=== PATIENT | female | born 1975 | race Caucasian/White ===

== ENCOUNTER 2017-02-18 01:57 | Observation (INO) | payer MEDICAID, OTHER ==
[~2017-02-18] VITALS: Ht 170.2 cm; Wt 76.7 kg
[~2017-02-18 01:57] MED LIST: CEFU500T PO; QUET100T4 PO; QUET25TA PO; QUET300T5 PO; ZIPR40CA2 PO; ZIPR80CA2 PO
[2017-02-18] MEDS ORDERED: ZIPRASIDONE 20 MG INJ IM ONE ×4 (02:30→13:13)
[2017-02-18 02:47] LABS: ASPARTATE AMINO TRANSFERASE 75 U/L (15-37); BLOOD UREA NITROGEN 15 mg/dL (7-18)
[2017-02-18 02:48] LABS: ACETAMINOPHEN < 2 mcg/mL (10-30)
[2017-02-18 08:53] LABS: DAU SCREEN DISCLAIMER
[2017-02-18 09:01] LABS: HCG UR OBC PASS
[2017-02-18] MEDS ORDERED: LORazepam 2 MG/ML, 1ML IM ONE (17:00)
[2017-02-18] MEDS ORDERED: LORazepam 2 MG/ML, 1ML ONE (17:02)
[2017-02-18] MEDS ORDERED: LORazepam 2 MG/ML, 1ML IVPush PRN (17:30)
[2017-02-18 18:01] VITALS: BP 114/76
[2017-02-18 18:21] LABS: HIV 1&2 ANTIBODY SCREEN Nonreactive (Nonreactive); HIV-1 p24 ANTIGEN Nonreactive (Nonreactive)
[2017-02-18] MEDS: SODIUM CHLORIDE 0.9% 1,000 ML IV SCH ×4 (19:12→23:12)
[2017-02-18 19:50] VITALS: BP 108/71
[2017-02-18] MEDS: ZIPRASIDONE 40MG CAPSULE PO SCH (21:46)
[2017-02-18] MEDS: QUETIAPINE 100MG TABLET PO SCH (21:46)
[2017-02-18] MEDS: ENOXAPARIN 40 MG/0.4 ML SQ SCH (21:47)
[2017-02-19 01:05] VITALS: BP 110/73
[2017-02-19] MEDS: SODIUM CHLORIDE 0.9% 1,000 ML IV SCH ×4 (01:12→07:12)
[2017-02-19 05:47] LABS: BLOOD UREA NITROGEN 7 mg/dL (7-18)
[2017-02-19 05:48] LABS: ASPARTATE AMINO TRANSFERASE 44 U/L (15-37)
[2017-02-19 08:13] VITALS: BP 110/76
[2017-02-19] MEDS ORDERED: LORazepam 1MG TABLET PO PRN (10:30)
[2017-02-19] MEDS: QUETIAPINE 100MG TABLET PO SCH ×3 (10:35→21:54)
[2017-02-19] MEDS: ZIPRASIDONE 40MG CAPSULE PO SCH ×2 (10:36→21:00)
[2017-02-19 12:53] VITALS: BP 115/77
[2017-02-19] MEDS: ENOXAPARIN 40 MG/0.4 ML SQ SCH (17:21)
[2017-02-19 19:45] VITALS: BP 120/82
[2017-02-19] MEDS ORDERED: ZIPRASIDONE 20MG CAPSULE ONE (21:44)
[2017-02-20 07:30] VITALS: BP 132/83
[2017-02-20] MEDS: ZIPRASIDONE 40MG CAPSULE PO SCH ×2 (09:00→20:26)
[2017-02-20] MEDS: QUETIAPINE 100MG TABLET PO SCH ×3 (09:12→20:26)
[2017-02-20] MEDS: NICOTINE 14MG/24 HR PATCH.TD24 TD SCH (15:00)
[2017-02-20] MEDS: ENOXAPARIN 40 MG/0.4 ML SQ SCH (17:28)
[2017-02-20 19:16] VITALS: BP 121/82
[2017-02-21 07:50] VITALS: BP 119/82
[2017-02-21] MEDS: ZIPRASIDONE 40MG CAPSULE PO SCH (09:17)
[2017-02-21] MEDS: QUETIAPINE 100MG TABLET PO SCH ×2 (09:17→15:36)
[2017-02-21] MEDS: NICOTINE 14MG/24 HR PATCH.TD24 TD SCH (15:36)
[2017-02-21] MEDS ORDERED: ENOXAPARIN 40 MG/0.4 ML SQ SCH (17:30)
[2017-02-22 12:06] LABS: HEPATITIS B SURFACE AG SCREEN Negative (Negative); HEPATITIS Be AB Negative (Negative); HEPATITIS Be AG Negative (Negative); HEPATITIS C VIRUS AB >11.0 s/co ratio (0.0-0.9)
== END 2017-02-21 18:33 | disposition home or self-care (01) ==
LOC: ED 04:06 → EDIP 16:55 → INTOOBSV 16:55 → 3NE 17:55 → 3E 02-19 11:09 → UNDODISIN 02-21 18:33
PROVIDERS: ADMIT Internal Medicine; ATTEND Internal Medicine
DX: F29 Unspecified psychosis not due to a substance or known physiological condition (principal); F20.0 Paranoid schizophrenia; N17.9 Acute kidney failure, unspecified; R11.2 Nausea with vomiting, unspecified; R19.7 Diarrhea, unspecified; R79.89 Other specified abnormal findings of blood chemistry; R45.851 Suicidal ideations; F31.9 Bipolar disorder, unspecified; F17.210 Nicotine dependence, cigarettes, uncomplicated; K12.0 Recurrent oral aphthae; F15.10 Other stimulant abuse, uncomplicated; F19.90 Other psychoactive substance use, unspecified, uncomplicated; Z82.49 Family history of ischemic heart disease and other diseases of the circulatory system; Z83.3 Family history of diabetes mellitus; Z90.49 Acquired absence of other specified parts of digestive tract
CPT/HCPCS: 36415; 73130; 76700; 80053; 80307; 80329; 81025; 83690; 84443; 85025; 86703; 86704; 86705; 86706; 86707; 86803; 87340; 87350; 87899; 93005; 96360; 96361; 96372; 99285; G0378; J1650; J2060; J3486; J7030; G0435; G0480